=== PATIENT | female | born 1950 | race Caucasian/White ===

== ENCOUNTER 2016-08-05 11:42 | Inpatient (IN) | payer MEDICARE, BC ==
[2016-08-05] VITALS (12 sets, daily range): BP systolic 116–138; BP diastolic 64–90; PULSE 72–98; RESP 11–24; Ht 147.3 cm; Wt 44.5 kg
[~2016-08-05] VITALS: Ht 147.3 cm; Wt 44.5 kg
[2016-08-05] MEDS ORDERED: LIDOCAINE 1% (MDV) 20 ML INJ ONE (13:14)
[2016-08-05] MEDS ORDERED: FENTAnyl 50 MCG/ML VIAL ONE ×2 (13:15→15:31)
[2016-08-05] MEDS ORDERED: MIDAZOLAM 1 MG/ML 2 ML INJ ONE ×3 (13:15→14:57)
[2016-08-05] MEDS ORDERED: INDO25CA25 PO (13:33)
[2016-08-05] MEDS ORDERED: PANT40TA3 PO (13:33)
[2016-08-05] MEDS ORDERED: VALA500T PO (13:33)
[2016-08-05] MEDS ORDERED: ENOX40DI12 SQ (13:33)
[2016-08-05] MEDS ORDERED: ASPI81TA3 PO (13:33)
[2016-08-05] MEDS ORDERED: METO25TA4 PO (13:33)
[2016-08-05] MEDS ORDERED: SMV40T PO (13:33)
--- NOTE | 2016-08-05 13:53 | OPR ---
Date/Time of Note Date/Time of Note DATE: 08/05/16 TIME: 13:51 Operative Report Free Text/Dictation Procedure Date:08/05/16 Procedures Performed: 1)Left heart catheterization with selective left and right coronary angiography. 2)Balloon angioplasty and stenting of the mid LAD with a Synergy 2.25 x 20 drug- eluting stent. 3)Balloon angioplasty and stenting of the mid OM with a Resolute 2.25 x 26 drug- eluting stent. Pre-operative Diagnosis:NSTEMI Post-operative Diagnosis:NSTEMI, severe 2 vessel CAD s/p PCI of LAD and OM Indications: 65 yo F with a h/o HTN, HL, who was admitted for chest pain and was found to have an NSTEMI (trop 0.5). EF was preserved and MPI was normal but due to ongoing symptoms and elevated troponins, the decision was made for cardiac catheterization. Description of Procedure: After informed consent, the patient was brought to the cardiac catheterization lab. The procedure site was prepped and draped in usual manner. The patient was premedicated with versed 1mg and fentanyl 25 mcg initially. Initially an attempt was made to use the right radial artery. 2 mL lidocaine was injected into the right wrist. Next using the posterior wall technique, a wire was inserted into the right radial without difficulty but the sheath would only go in past an inch due to severe spasm. After some NTG and further sedation , the sheath was successfully removed and a TR band placed. Next the right groin was used. 8mL lidocaine was injected into the right groin. Next using the Seldinger technique, the 5 swedish sheath was inserted into the right femoral artery. Next using the JL3.0 and JR4, selective angiography of the left and right coronary arteries were obtained. The pigtail was then advanced into the ventricle and hemodynamics obtained. Left ventricle angiography was not obtained. The decision was made to proceed with PCI of the LAD first. The 5 swedish sheath was exchanged for a 6 swedish. A 6 swedish JL 3.0 guide was advanced and engaged into the left coronary artery. After appropriate anticoagulation and antiplatelets were given, the BMW angioplasty wire was advanced past the lesion. Next the 2.0 X 12 balloon was used to dilate the lesion times 3 at a maximum of 10 obinna. As the stent could not be crossed due to tortuosity, an attempt was made to use the Mailman as a alejandra wire but the wire would not advance easily so instead the decision was made to dilate the lesion further with the 2.0 x 12 balloon x 2 at 12 obinna. Subsequently, the Synergy 2.25 x 20 stent was advanced to the lesion and deployed at 11 obinna. Next the stent was post dilated with the 2.5 X 8 noncompliant balloon times 4 at a maximum of 14 obinna. Final angiography revealed DELROY 3 flow, no edge dissection, and appropriate stent expansion. The decision was then made to proceed with PCI of the OM as the pt was very anxious and would be difficult to repeat a cath at a later time. Furthermore, the OM lesion was very tight and the patient has normal renal function. A new BMW angioplasty wire was advanced past the lesion. Next the 2.0 X 12 balloon was used to dilate the lesion times 2 at a maximum of 10 obinna. Subsequently, the Resolute 2.25 x 26 stent was advanced to the lesion and deployed at 9 obinna. Next the stent was post dilated with the 2.5 X 12 noncompliant balloon times 3 at a maximum of 12 obinna. Final angiography revealed DELROY 3 flow, no edge dissection, and appropriate stent expansion. Next all equipment was removed. The sheath will be removed in the ICU. Findings: Anatomy/Hemodynamics: Calcified coronary arteries Left main: no significant lesion LAD:mid eccentric tortuous 90% lesion Diagonal: normal Circumflex:normal Obtuse marginal: mid 95% RCA:mild plaquing PDA:mild plaquing PLV:mild plaquing LV angiography:not done LV-Ao:no gradient LVEDP:15 mmHg Contrast used:180 mL Fluoroscopy time:24.5 min Medications used: Versed 2.5mg Fentanyl 125mcg ASA 325mg Ticagrelor 180mg angiomax bolus + drip NTG 200mcg IC x 1 Equipment used: 6 swedish JL 3.0 guide BMW angioplasty wire x 2 2 x 12 balloon Synergy 2.25 x 20 drug-eluting stent (LAD) Resolute 2.25 x 26 drug-eluting stent (OM) 2.5 x 8 and 2.5 x 12 noncompliant balloon Assessment: Severe two vessel coronary artery disease of the LAD and OM s/p PCI of the mid LAD s/p PCI of the mid OM NSTEMI HTN HL Plan: -observe ion ICU overnight -ASA 81mg lifelong -ticagrelor 90mg BID for at least 1 year statin, BB, ACEI as tolerated NIDHI VERDUZCO August 05, 2016 13:53
[2016-08-05] MEDS: SOD CHLORIDE 0.9% 1,000 ML IV SCH ×2 (14:00→16:04)
[2016-08-05] MEDS ORDERED: ASPIRIN 325 MG TAB ONE (14:44)
[2016-08-05] MEDS ORDERED: TICAGRELOR 90 MG TABLET ONE (14:44)
[2016-08-05] MEDS ORDERED: VERAPAMIL 5 MG INJ ONE (14:53)
[2016-08-05] MEDS ORDERED: BIVALIRUDIN 250MG /NS 50 ML 50 ML IVPB ONE (14:53)
[2016-08-05] MEDS ORDERED: HEPARIN 1000 UNITS/ML 10 ML INJ ONE (14:53)
[2016-08-05] MEDS ORDERED: NITROGLYCERIN (IC) 100 MCG/ML INJ ONE ×2 (14:54→15:47)
[2016-08-05] MEDS ORDERED: IODIXANOL LOCM 100 ML BTL ONE (15:16)
[2016-08-05] MEDS ORDERED: hydrALAzine 20 MG INJ ONE (15:47)
[2016-08-05] MEDS ORDERED: ONDANSETRON 4 MG INJ ONE (15:59)
[2016-08-05] MEDS: AMLODIPINE 5 MG TAB PO SCH (16:30)
[2016-08-05] MEDS ORDERED: hydrALAzine 20 MG INJ IV PRN (16:30)
[2016-08-05] MEDS ORDERED: morphine 2 MG INJ IV PRN (16:30)
[2016-08-05] MEDS: ONDANSETRON 4 MG INJ IV PRN ×2 (17:52→22:19)
--- NOTE | 2016-08-05 18:06 | HP ---
DATE OF ADMISSION: 08/05/2016 CHIEF COMPLAINT: Chest pain, non-STEMI. HISTORY OF PRESENT ILLNESS: This is a 65-year-old female with a past medical history of hypertensio n, dyslipidemia who was admitted to an outside hospital with chest pain. The patient was subsequent ly ruled in for a non-STEMI. The patient had a 2D echo performed at the outside hospital which show ed ejection fraction preserved. The patient was transferred to [facility] to critical access hospital rgo cardiac catheterization. The patient underwent cardiac catheterization today with a PCI to the mid LAD as well as angioplasty, PCI with stenting of the mid OM. Following the procedure, the patie nt had episode of chest pain and hypertension, was felt to be secondary to anxiety. The patient had a 2D echo following the procedure which was within normal limits. The patient was subsequently tra nsferred to intensive care unit for observation and monitoring. Upon my evaluation, patient at this time is currently stable. She is complaining about generalized chest pain but denies any nausea, vomiting, any hemoptysis, hemetemesis, hematochezia. PAST MEDICAL HISTORY: Stated above. History of hypertension, history of dyslipidemia. PAST SURGICAL HISTORY: None. FAMILY HISTORY: Positive for coronary artery disease. SOCIAL HISTORY: Occasional alcohol use. MEDICATIONS: The patient's medications have been reviewed, reconciled. REVIEW OF SYSTEMS: A 14-point review of systems was conducted. Pertinent positives stated in HPI, otherwise negative. PHYSICAL EXAMINATION: VITAL SIGNS: Blood pressure 122/70, respiration 19, pulse 73, temperature 97.4. HEENT: Normocephalic. Pupils are reactive to light. NECK: Supple. HEART: Regular rate. LUNGS: Diminished breath sounds at base, otherwise clear. ABDOMEN: Soft, nontender to palpation. No rebound, guarding. EXTREMITIES: Negative for clubbing, cyanosis. No edema. DERMATOLOGIC: No rashes. MUSCULOSKELETAL: No joint effusion. NEUROLOGIC: No focal deficits. LABORATORY: The patient's laboratory data from outside hospital showed a white count 6.1, hemoglobi n 13.9, hematocrit of 41, platelet count 216. The patient had a BUN of 15, creatinine 0.6, glucose 108, calcium 8.6, sodium 143, potassium 3.9, chloride 106. ASSESSMENT AND PLAN: This is a 65-year-old female who presents with: 1. Non-ST elevation myocardial infarction. The patient status post cardiac catheterization with PC I to the mid LAD ____ with drug-eluting stent. Plan at this point is to continue current medical ma nagement. Will continue aspirin, Brilinta. Continue metoprolol. Will follow up with Cardiology, Odell ventura ____, for further recommendations. Monitor closely. 2. Hypertension. The patient's blood pressure currently controlled. Continue current blood pressu re regimen. 3. Dyslipidemia. The patient will be resumed on statin therapy. 4. Gastrointestinal, deep venous thrombosis prophylaxis. Start the patient on Pepcid and sequentia l leg squeezers. Please note I spent up to 25 minutes of [id number] time with the patient. The patient is a FULL CODE. Dictated By: LISSETH RAMIRES/GANGA Conf#: [id number] DID#: [id number]
[2016-08-05] MEDS ORDERED: ATROPINE 1 MG/10 ML SYRINGE ONE (20:12)
[2016-08-05] MEDS: METOPROLOL 25 MG TAB PO SCH (21:13)
[2016-08-05] MEDS: TICAGRELOR 90 MG TABLET PO SCH (21:21)
[2016-08-05] MEDS ORDERED: ACETAMINOPHEN 500 MG TAB PO PRN (23:00)
[2016-08-06] VITALS (13 sets, daily range): BP systolic 109–146; BP diastolic 61–83; PULSE 75–113; RESP 15–25
[2016-08-06 05:40] LABS: ADD SCAN DIFF NO
[2016-08-06 06:04] LABS: ABNORMAL IP MESSAGE 1; BASOPHILS % 0.3 % (0.0-2.0); EOSINOPHILS % 0.1 % (0.0-7.0); HEMOGLOBIN 12.5 g/dl (12.0-16.0); LYMPHOCYTES # 0.6 10^3/ul (0.8-2.9); LYMPHOCYTES % 7.4 % (15.0-51.0); MEAN CORPUSCULAR HEMOGLOBIN 33.7 pg (29.0-33.0); MEAN CORPUSCULAR HGB CONC 33.8 g/dl (32.0-37.0); MEAN CORPUSCULAR VOLUME 99.7 fl (82.0-101.0); MEAN PLATELET VOLUME 10.7 fl (7.4-10.4); MONOCYTE # 0.8 10^3/ul (0.3-0.9); MONOCYTES % 10.2 % (0.0-11.0); NEUTROPHIL # 6.5 10^3/ul (1.6-7.5); NEUTROPHILS % 81.5 % (39.0-77.0); PLATELET COUNT 210 10^3/UL (140-415); POTASSIUM 3.6 mmol/L (3.5-5.1); RED BLOOD COUNT 3.71 10^6/ul (4.20-5.40); RED CELL DISTRIBUTION WIDTH 11.9 % (11.5-14.5)
[2016-08-06 06:06] LABS: CREATININE 0.49 mg/dl (0.44-1.00)
[2016-08-06 06:07] LABS: CALCIUM 8.8 mg/dl (8.4-10.2); MAGNESIUM 1.7 mg/dl (1.7-2.5); PHOSPHORUS 4.6 mg/dl (2.5-4.9)
[2016-08-06] MEDS: AMLODIPINE 5 MG TAB PO SCH (08:36)
[2016-08-06] MEDS: METOPROLOL 25 MG TAB PO SCH (08:37)
[2016-08-06] MEDS: TICAGRELOR 90 MG TABLET PO SCH (08:38)
[2016-08-06] MEDS ORDERED: ASPIRIN 81 MG TAB PO SCH (09:00)
--- NOTE | 2016-08-06 10:43 | DS ---
DATE OF ADMISSION: 08/05/2016 DATE OF DISCHARGE: 08/06/2016 HOSPITAL COURSE: This is a 65-year-old female with a past medical history of hypertension, dyslipid emia who initially presented to an outside hospital at [place] with chest pain. The patient wa s admitted and ruled in for a non-STEMI, was treated medically and transferred to [facility] where she underwent cardiac catheterization. The patient had PCI to the mid LAD and obtu se marginal with 2 drug-eluting stents. The patient had no intraoperative complications. Postopera tively, the patient was noted to be hypertensive, which was controlled with medical management. Cur rently, at this time, the patient is chest pain free. She has no fevers, chills, nausea, vomiting. She is ambulating well. The patient will be discharged home, where she will follow up with cardiol ogist, Dr. Oconnell in 1 week's time. At the time of discharge, the patient is stable, in no acut e distress. FINAL DIAGNOSES: 1. Non-ST elevation myocardial infarction, status post PCI to LAD, mid and obtuse marginal. 2. Hypertension. 3. Dyslipidemia. FINAL MEDICATIONS: The patient will be given: 1. Aspirin 81 mg daily. 2. Brilinta 90 mg p.o. b.i.d. 3. Metoprolol 25 mg p.o. b.i.d. 4. Amlodipine 5 mg p.o. daily. 5. The patient will continue Zocor 40 mg p.o. at bedtime. FOLLOWUP: The patient will follow up with Dr. Oconnell in 1 week's time. Please note I spent over 40 minutes of time preparing the patient's discharge. Dictated By: LISSETH RAMIRES/GANGA Conf#: [id number] DID#: [id number]
--- NOTE | 2016-08-06 12:49 | CONS ---
Date/Time of Note Date/Time of Note DATE: 08/06/16 TIME: 12:42 Assessment/Plan Assessment/Plan Chief Complaint/Hosp Course NSTEMI: Trop 0.5. S/p PCI of mid LAD and mid OM 08/05/16. No complications. Groin site mild bruising but no hematoma or bruit. Ok for d/c CAD: as above, s/p PCI to LAD and OM HTN HL Anxiety -ok for d/c -ASA 81mg -ticagrelor 90mg BID -lipitor -metoprolol 25mg BID -amlodipine for now, can switch to ACEI as outpt Problems: Consultation Date/Type/Reason Admit Date/Time August 05, 2016 at 16:16 Initial Consult Date Type of Consultation: Cardiology 24 HR Interval Summary Free Text/Dictation No o/n events. Doing very well. No chest pain. Has many questions. Exam/Review of Systems Vital Signs Vitals Vital Signs Date Time Temp Pulse Resp B/P Pulse Ox O2 Delivery O2 Flow Rate FiO2 08/06/16 11:00 88 128/79 99 Room Air 08/06/16 10:00 18 08/06/16 08:00 98.8 Intake and Output 08/05/16 08/05/16 08/06/16 15:00 23:00 07:00 Intake Total 1345 ml 475 ml Output Total 1000 ml 300 ml Balance 345 ml 175 ml Exam Constitutional: alert, oriented Psych: no complaints Head: normocephalic Neck: No jvd Respiratory: clear to auscultation, No crackles/rales Cardiovascular: regular rate and rhythm, No edema Gastrointestinal: non-tender, soft Extremities: other (right groin mild ecchymosis, no hematoma or bruit. Right wrist no issues) Neurological: nl mental status, nl speech Results EKG: sinus, no ST changes Result Diagram: 08/06/16 0508/06/16 0525 Results 24 hrs Laboratory Tests Test 08/06/16 05:25 White Blood Count 8.0 Red Blood Count 3.71 L Hemoglobin 12.5 Hematocrit 37.0 Mean Corpuscular Volume 99.7 Mean Corpuscular Hemoglobin 33.7 H Mean Corpuscular Hemoglobin Concent 33.8 Red Cell Distribution Width 11.9 Platelet Count 210 Mean Platelet Volume 10.7 H Neutrophils % 81.5 H Lymphocytes % 7.4 L Monocytes % 10.2 Eosinophils % 0.1 Basophils % 0.3 Nucleated Red Blood Cells % 0.0 Neutrophils # 6.5 Lymphocytes # 0.6 L Monocytes # 0.8 Eosinophils # 0.0 Basophils # 0.0 Nucleated Red Blood Cells # 0.0 Sodium Level 140 Potassium Level 3.6 Chloride Level 106 Carbon Dioxide Level 24 Anion Gap 14 Blood Urea Nitrogen 16 Creatinine 0.49 Glucose Level 99 Calcium Level 8.8 Phosphorus Level 4.6 Magnesium Level 1.7 Medications Medications Current Medications Morphine Sulfate (morphine) 2 mg Q2H PRN IV FOR NON CARDIAC PAIN (4-10); Start 08/05/16 at 16:30 Ondansetron HCl (Zofran Inj) 4 mg Q4H PRN IV NAUSEA AND/OR VOMITING Last administered on 08/05/16 22:19; Admin Dose 4 MG; Start 08/05/16 at 16:30 Aspirin (Aspirin) 81 mg DAILY PO Last administered on 08/06/16 08:36; Admin Dose 81 MG; Start 08/06/16 at 09:00 Ticagrelor (Brilinta) 90 mg BID PO Last administered on 08/06/16 08:38; Admin Dose 90 MG; Start 08/05/16 at 21:00 Hydralazine HCl (Apresoline) 10 mg Q4H PRN IV SBP>160; Start 08/05/16 at 16:30 Metoprolol Tartrate (Lopressor) 25 mg BID PO Last administered on 08/06/16 08: 37; Admin Dose 25 MG; Start 08/05/16 at 21:00 Amlodipine Besylate (Norvasc) 5 mg DAILY PO Last administered on 08/06/16 08: 36; Admin Dose 5 MG; Start 08/05/16 at 16:30 Acetaminophen (Tylenol Tab) 1,000 mg Q4H PRN PO PAIN AND OR ELEVATED TEMP; Start 08/05/16 at 23:00 NIDHI VERDUZCO August 06, 2016 12:49
--- NOTE | 2016-08-06 20:37 | RADRPT ---
Vent Rate: 73 bpm RR Interval: 0 msec ME Interval: 142 msec QRS Duration: 70 msec QT Interval: 416 msec QTC Interval: 458 msec P-R-T [place]: 59 - 75 - 72 degrees Normal sinus rhythm Normal ECG Electronically Signed By: Miguel Ortiz [id number]
== END 2016-08-06 14:20 | disposition home or self-care (01) | DRG 247 ==
LOC: CCL 11:42 → ICU 16:16 → CCL 19:14
PROVIDERS: ADMIT Internal Medicine Interventional Cardiology; ATTEND Internal Medicine Interventional Cardiology
PROC: B2111ZZ Fluoroscopy of Multiple Coronary Arteries using Low Osmolar Contrast (ICD-10-PCS; 2016-08-05)
PROC: 027135Z Dilation of Coronary Artery, Two Arteries with Two Drug-eluting Intraluminal Devices, Percutaneous Approach (ICD-10-PCS; principal; 2016-08-05 14:00)
PROC: 4A023N7 Measurement of Cardiac Sampling and Pressure, Left Heart, Percutaneous Approach (ICD-10-PCS; 2016-08-05 14:00)
DX: I21.4 Non-ST elevation (NSTEMI) myocardial infarction (principal); I10 Essential (primary) hypertension; I25.10 Atherosclerotic heart disease of native coronary artery without angina pectoris; E78.5 Hyperlipidemia, unspecified; F41.9 Anxiety disorder, unspecified
CPT/HCPCS: 80048; 83735; 84100; 85025; 87081; 93005; 93458; C1725; C1769; C1887; C9600; C9601; J0360; J0461; J0583; J1644; J2250; J2405; J3010; Q9967